=== PATIENT | female | born 1980 | race Caucasian/White ===

== ENCOUNTER 2020-05-22 10:45 | Emergency (ER) | payer MEDICAID ==
[~2020-05-22] VITALS: Ht 165.1 cm; Wt 76.0 kg
[2020-05-22] MEDS ORDERED: HYDROCODONE/ACETAMINOPHEN 5/325MG TABLET PO ONE (11:00)
[2020-05-22 11:28] VITALS: BP 101/61
== END 2020-05-22 11:59 | disposition home or self-care (01) ==
LOC: ER 11:43
DX: K08.89 Other specified disorders of teeth and supporting structures (principal)
CPT/HCPCS: 99283

== ENCOUNTER 2022-06-26 15:47 | Emergency (ER) | payer MEDICAID ==
[~2022-06-26] VITALS: Ht 166.4 cm; Wt 82.0 kg
[2022-06-26 16:02] VITALS: BP 118/77
== END 2022-06-26 21:15 | disposition left against medical advice (07) ==
LOC: ER 15:47
DX: Z53.21 Procedure and treatment not carried out due to patient leaving prior to being seen by health care provider (principal); R06.02 Shortness of breath
CPT/HCPCS: 93005

== ENCOUNTER 2022-09-14 20:22 | Emergency (ER) | payer MEDICAID ==
[~2022-09-14] VITALS: Ht 165.1 cm; Wt 200.0 kg
[2022-09-14 20:56] LABS: BASOPHILS % 0.7 % (0.0-2.0); HEMATOCRIT. 39.2 % (36.0-48.0); HEMOGLOBIN. 13.9 g/dL (12.0-16.0); LYMPHOCYTES % 26.8 % (20.0-50.0); MEAN CORPUSCULAR HEMOGLOBIN 34.2 pg (28.0-32.0); MEAN CORPUSCULAR VOLUME 96.5 fL (81.0-99.0); MEAN PLATELET VOLUME 6.9 fl (7.4-10.4); MONOCYTES % 7.3 % (2.0-8.0); NEUTROPHILS % 64.2 % (40.0-76.0); PLATELET 325 x1000/uL (130-400); RED BLOOD CELL COUNT 4.06 mill/uL (4.2-5.4); RED CELL DISTRIBUTION WIDTH 14.7 % (11.6-14.6)
[2022-09-14 21:16] LABS: CHLORIDE 103 mEq/L (98-107)
[2022-09-14] MEDS ORDERED: ONDANSETRON HCL 4MG/2ML INJ IV ONE (23:15)
[2022-09-14] MEDS ORDERED: MORPHINE SULFATE 4 MG/ML CPJ (NOT FOR IM USE) IV ONE (23:15)
[2022-09-14] MEDS ORDERED: SODIUM CHLORIDE 0.9% 1,000 ML IV ONE (23:15)
[2022-09-14 23:28] LABS: HCG SCREEN NEGATIVE
[2022-09-15] MEDS ORDERED: IBUP-2028 MT (01:28)
[2022-09-15] MEDS ORDERED: ONDA4TAB50 MT (01:28)
[2022-09-15 02:32] VITALS: BP 129/70
== END 2022-09-15 02:33 | disposition home or self-care (01) ==
LOC: ER 20:22 → CANBEDREQ 09-15 02:20 → ER 09-15 02:33
DX: K85.90 Acute pancreatitis without necrosis or infection, unspecified (principal); F12.10 Cannabis abuse, uncomplicated; Z87.01 Personal history of pneumonia (recurrent)
CPT/HCPCS: 36415; 76705; 80053; 83690; 84703; 85025; 93005; 96361; 96374; 96375; 99285; J2270; J2405; J7030; Z7610

== ENCOUNTER 2023-06-12 09:58 | Emergency (ER) | payer MEDICAID ==
[~2023-06-12] VITALS: Ht 167.6 cm; Wt 75.0 kg
[~2023-06-12 09:58] MED LIST: IBUP-2028 MT; ONDA4TAB50 MT
[2023-06-12 10:06] VITALS: O2SAT 98
[2023-06-12] MEDS ORDERED: AMOX-494 MT (10:18)
[2023-06-12] MEDS ORDERED: IBUP-2030 MT (10:18)
[2023-06-12 10:56] VITALS: BP 94/76; PULSE 71; RESP 16; TEMP 98.1
== END 2023-06-12 11:01 | disposition home or self-care (01) ==
LOC: ER 09:58
DX: K04.7 Periapical abscess without sinus (principal); F12.10 Cannabis abuse, uncomplicated; Z86.59 Personal history of other mental and behavioral disorders
CPT/HCPCS: 81025; 99283

== ENCOUNTER 2024-03-28 13:58 | Emergency (ER) | payer MEDICAID ==
[~2024-03-28] VITALS: Ht 167.6 cm; Wt 91.0 kg
[~2024-03-28 13:58] MED LIST changes: +AMOX-494 MT; +IBUP-2030 MT
[2024-03-28 14:30] VITALS: O2SAT 100
[2024-03-28 16:01] LABS: CHLORIDE 105 mEq/L (98-107); POTASSIUM 3.8 mEq/L (3.5-5.1); SODIUM 137 mEq/L (136-145)
[2024-03-28 16:02] LABS: CALCIUM 8.9 mg/dL (8.7-10.4); CARBON DIOXIDE 27 mEq/L (21-32)
[2024-03-28 16:04] LABS: BASOPHILS % 0.8 % (0.0-2.0); EOSINOPHILS % 0.5 % (0.0-5.0); HEMOGLOBIN. 12.3 g/dL (12.0-16.0); LYMPHOCYTES % 25.2 % (20.0-50.0); MEAN CORPUSCULAR HEMOGLOBIN 30.6 pg (28.0-32.0); MEAN CORPUSCULAR HGB CONC 34.3 g/dL (31.0-37.0); MEAN CORPUSCULAR VOLUME 89.3 fL (81.0-99.0); MONOCYTES % 6.9 % (2.0-8.0); NEUTROPHILS % 66.6 % (40.0-76.0); PLATELET 421 x1000/uL (130-400); RED BLOOD CELL COUNT 4.03 mill/uL (4.2-5.4); WHITE BLOOD COUNT 10.9 x1000/uL (4.5-11.0)
[2024-03-28 16:07] LABS: CREATININE 0.9 mg/dL (0.6-1.0); GLUCOSE 96 mg/dL (70-105); UREA NITROGEN BLOOD 8 mg/dL (9-23)
[2024-03-28 16:10] LABS: HCG SCREEN NEGATIVE
[2024-03-28 17:43] VITALS: BP 132/83; PULSE 79; RESP 14; TEMP 36.83628; O2SAT 98
== END 2024-03-28 17:46 | disposition home or self-care (01) ==
LOC: ER 13:58
DX: R20.2 Paresthesia of skin (principal); F12.90 Cannabis use, unspecified, uncomplicated; G43.909 Migraine, unspecified, not intractable, without status migrainosus; Z79.899 Other long term (current) drug therapy
CPT/HCPCS: 36415; 80048; 81025; 84703; 85025; 99283

== ENCOUNTER 2024-10-13 21:41 | Emergency (ER) | payer MEDICAID ==
[~2024-10-13] VITALS: Ht 165.1 cm; Wt 78.0 kg
[2024-10-13 21:48] VITALS: TEMP 36.9; O2SAT 100
[2024-10-13] MEDS ORDERED: MORPHINE SULFATE 4 MG/ML INJ (FOR IV/IM USE) IV ONE (22:30)
[2024-10-13] MEDS ORDERED: ACETAMINOPHEN 325MG TABLET PO ONE (22:30)
[2024-10-13 22:57] LABS: EOSINOPHILS % 0.7 % (0.0-5.0); HEMATOCRIT. 34.4 % (36.0-48.0); HEMOGLOBIN. 11.7 g/dL (12.0-16.0); LYMPHOCYTES % 36.9 % (20.0-50.0); MEAN CORPUSCULAR HEMOGLOBIN 29.2 pg (28.0-32.0); MEAN CORPUSCULAR HGB CONC 33.9 g/dL (31.0-37.0); MEAN CORPUSCULAR VOLUME 86.2 fL (81.0-99.0); MEAN PLATELET VOLUME 7.7 fl (7.4-10.4); MONOCYTES % 8.1 % (2.0-8.0); NEUTROPHILS % 53.3 % (40.0-76.0); PLATELET 233 x1000/uL (130-400); RED CELL DISTRIBUTION WIDTH 20.2 % (11.6-14.6); WHITE BLOOD COUNT 9.7 x1000/uL (4.5-11.0)
[2024-10-13 23:04] LABS: CARBON DIOXIDE 22 mEq/L (21-32); CHLORIDE 104 mEq/L (98-107); POTASSIUM 3.7 mEq/L (3.5-5.1); SODIUM 136 mEq/L (136-145)
[2024-10-13 23:05] LABS: CALCIUM 8.4 mg/dL (8.7-10.4)
[2024-10-13 23:08] LABS: HCG SCREEN NEGATIVE
[2024-10-13 23:09] LABS: CREATININE 0.9 mg/dL (0.6-1.0); GLUCOSE 104 mg/dL (70-105)
[2024-10-13 23:10] LABS: ETHANOL BLOOD 300 mg/dL (<10); UREA NITROGEN BLOOD 16 mg/dL (9-23)
[2024-10-13 23:11] LABS: ACETAMINOPHEN < 2 ug/mL (10-30); ALANINE AMINOTRANSFERASE 22 IU/L (10-49); ALBUMIN 4.1 g/dL (3.2-4.8); ASPARTATE AMINOTRANSFERASE 74 IU/L (<34)
[2024-10-13 23:12] LABS: BILIRUBIN DIRECT 0.2 mg/dL (<=3.0); BILIRUBIN TOTAL 0.9 mg/dL (0.1-1.0); PROTEIN TOTAL 7.9 g/dL (6.0-8.3)
[2024-10-14] MEDS ORDERED: ACETAMINOPHEN 325MG TABLET PO SCH (00:15)
[2024-10-14] MEDS ORDERED: MORPHINE SULFATE 4 MG/ML INJ (FOR IV/IM USE) IV SCH (00:15)
[2024-10-14] MEDS ORDERED: ONDANSETRON HCL 4MG/2ML INJ IV ONE (00:30)
[2024-10-14] MEDS ORDERED: KETOROLAC 15MG/ML VIAL IV ONE (00:30)
[2024-10-14] MEDS ORDERED: ACETAMINOPHEN 1000MG/100ML 100 ML IV ONE (00:30)
[2024-10-14] MEDS ORDERED: ACET-2708 MT (00:56)
[2024-10-14] MEDS ORDERED: BACL-141 MT (00:56)
[2024-10-14] MEDS ORDERED: IBUP-2029 MT (00:56)
[2024-10-14 01:35] VITALS: BP 145/99; PULSE 95; RESP 18; O2SAT 100
[2024-10-14] MEDS ORDERED: ONDANSETRON HCL 4MG/2ML INJ IV NR (02:45)
== END 2024-10-14 01:41 | disposition home or self-care (01) ==
LOC: ER 21:41
DX: M53.3 Sacrococcygeal disorders, not elsewhere classified (principal); F10.129 Alcohol abuse with intoxication, unspecified; Z87.19 Personal history of other diseases of the digestive system; Z79.899 Other long term (current) drug therapy; W10.9XXA Fall (on) (from) unspecified stairs and steps, initial encounter; Y93.89 Activity, other specified; Y92.89 Other specified places as the place of occurrence of the external cause; Y99.8 Other external cause status; Y90.9 Presence of alcohol in blood, level not specified
CPT/HCPCS: 80076; 80048; 80307; 80329; 80320; 84703; 85025; 36415; 72131; 99284; Z7610; J2270; G0480; J0131